=== PATIENT | female | born 1980 | race Two or more races ===

== ENCOUNTER 2020-08-01 19:26 | Emergency (ER) | payer OTHER ==
[~2020-08-01] VITALS: Ht 160 cm; Wt 96.6 kg
[2020-08-01 19:28] VITALS: BP 150/82
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
[2020-08-01] MEDS ORDERED: LIDOCAINE-MPF 1%, 5ML INFIL ONE (20:00)
[2020-08-01] MEDS ORDERED: LIDOCAINE-MPF 1%, 5ML ONE ×2 (20:27→20:51)
== END 2020-08-01 21:16 | disposition home or self-care (01) ==
LOC: ED 21:10
DX: S61.306A Unspecified open wound of right little finger with damage to nail, initial encounter (principal); W23.0XXA Caught, crushed, jammed, or pinched between moving objects, initial encounter; Y93.89 Activity, other specified; Y92.009 Unspecified place in unspecified non-institutional (private) residence as the place of occurrence of the external cause; Y99.8 Other external cause status
CPT/HCPCS: 11730; 99284